=== PATIENT | male | born 2000 ===

== ENCOUNTER 2022-03-09 19:00 | Outpatient (CLI) | payer OTHER | END 2022-03-09 19:01 | disposition home or self-care (01) | LOC: SLEEPLAB 19:00 | PROVIDERS: ATTEND Student in an Organized Health Care Education/Training Program | DX: G47.33 Obstructive sleep apnea (adult) (pediatric) (principal); R06.83 Snoring; R09.89 Other specified symptoms and signs involving the circulatory and respiratory systems; I10 Essential (primary) hypertension; R53.83 Other fatigue; G47.10 Hypersomnia, unspecified; G47.00 Insomnia, unspecified; R44.3 Hallucinations, unspecified | CPT/HCPCS: 95810 ==